=== PATIENT | male | born 1945 | race Caucasian/White ===

== ENCOUNTER 2019-02-13 16:28 | Emergency (ER) | payer MEDICARE ==
[~2019-02-13] VITALS: Ht 170.2 cm; Wt 77.0 kg
[2019-02-13 16:30] VITALS: BP 149/83
[2019-02-13] MEDS ORDERED: DIPH,PERTUSS(ACELL),TET VAC/PF 0.5 ML IM-VACC ONE ×2 (17:00→17:09)
[2019-02-13] MEDS ORDERED: BACITRACIN ZINC OINT 500U/GM, 0.9 GM ONE (17:13)
== END 2019-02-13 17:29 | disposition home or self-care (01) ==
LOC: ED 17:23
DX: S00.33XA Contusion of nose, initial encounter (principal); S00.511A Abrasion of lip, initial encounter; I25.2 Old myocardial infarction; W01.0XXA Fall on same level from slipping, tripping and stumbling without subsequent striking against object, initial encounter; Y93.89 Activity, other specified; Y92.89 Other specified places as the place of occurrence of the external cause; Y99.8 Other external cause status
CPT/HCPCS: 90471; 90715

== ENCOUNTER 2021-02-18 17:59 | Emergency (ER) | payer MEDICARE ==
[~2021-02-18] VITALS: Ht 172.7 cm; Wt 78.8 kg
[2021-02-18] MEDS ORDERED: LIDOCAINE-MPF 1%, 5ML INFIL ONE (18:30)
[2021-02-18] MEDS ORDERED: LIDOCAINE-MPF 1%, 5ML ONE (20:49)
[2021-02-18 21:38] VITALS: BP 139/81
== END 2021-02-18 21:40 | disposition home or self-care (01) ==
LOC: ED 20:29
DX: S61.217A Laceration without foreign body of left little finger without damage to nail, initial encounter (principal); W26.0XXA Contact with knife, initial encounter; Y93.89 Activity, other specified; Y92.009 Unspecified place in unspecified non-institutional (private) residence as the place of occurrence of the external cause; Y99.8 Other external cause status
CPT/HCPCS: 12041; 99284